=== PATIENT | female | born 1995 | race Caucasian/White ===

== ENCOUNTER 2016-12-11 23:40 | Emergency (ER) | payer OTHER ==
[~2016-12-11] VITALS: Ht 162.6 cm; Wt 54.4 kg
[2016-12-12 00:27] VITALS: BP 113/74
--- NOTE | 2016-12-12 00:58 | PHYS DOC ---
Past Medical History Past Medical History: Other Additional Past Medical Histor: HEART DYSRHYTHMIA Past Surgical History: No Surgical History Alcohol Use: Occasionally Drug Use: Other Social History Narrative: "I TAKE ADDERALL SOMETIMES" Adult General Chief Complaint Chief Complaint: CHEST PAIN HPI HPI Patient is a 21 year old female with a history significant for palpitations in the past. Patient reports that she was diagnosed with palpitations when she was 14 years old. Patient presents here today secondary to feeling her heart was racing and some chest discomfort. Patient reports that she uses Adderall earlier today as well. Patient does smoke tobacco. Patient denies any history of hypertension diabetes liver lung or kidney problems. Patient had no abdominal surgeries in the past. Patient is allergic to Augmentin. Patient has any fevers shakes chills nausea vomiting or diarrhea. Patient reports she is tolerating by mouth's well. Patient reports she's got discomfort in her midepigastric area. Reports her last menstrual period was one week ago. Patient presents here today because she is concerned because her symptoms of her palpitations and they're difficult she's had the past. Patient reports that she' s had a Holter monitor in the past. Patient's physical exam the ER was unremarkable. She is alert awake oriented 3. Patient's heart rate currently is 70-80. Patient's lungs were clear with no wheezing rales or rhonchi. Patient is not reveals. Patient's thyroid is not palpable. Patient's ER workup was significant for normal EKG. Her EKG was normal sinus rhythm at a heart rate of [address]-T wave abnormalities. Patient refused the chest x-ray. I had a long conversation with the patient regarding the likelihood that her symptoms are from the Adderall use that she is taking. Patient does not seem to be satisfied without answer. Patient thinks that her palpitations are from something else. Given her normal vital signs, normal EKG, normal exam at present , I do not feel that the patient at this time would warrant any further inpatient or emergency evaluation. I discussed with the patient that the most likely cause of her symptoms is the Adderall however I could not tell for certain that there isn't something else might be causing her to have palpitations. I recommended strongly for the patient to stop using Adderall completely and to follow-up with her primary care physician for a referral to see her underwater welder so that they can do another Holter monitor on her and assess her palpitations in her symptoms more thoroughly. Patient is currently clinically and hemodynamically stable. Although patient does not appear to be completely satisfied with my examination I unfortunately do not think there is anything further that I can do to assist her. I did spend close to 15-20 minutes after my full evaluation, discussing my recommendations with her. Review of Systems Review of Systems Constitutional: Denies fever or chills [] Eyes: Denies change in visual acuity, redness, or eye pain [] HENT: Denies nasal congestion or sore throat [] All other review systems are negative except as documented in history of present illness portion. Allergies Allergies Allergies Coded Allergies Type Severity Reaction Last Updated Verified amoxicillin Allergy Intermediate Hives 12/12/16 Yes clavulanic acid Allergy Intermediate Hives 12/12/16 Yes sulfamethoxazole Allergy Intermediate HIVES 12/12/16 Yes trimethoprim Allergy Intermediate HIVES 12/12/16 Yes Physical Exam Physical Exam Constitutional: Well developed, well nourished, no acute distress, non-toxic appearance. [] HENT: Normocephalic, atraumatic Eyes: EOMI, conjunctiva normal, no discharge. [] Neck: Normal range of motion, no tenderness, supple, no stridor. [] Cardiovascular:Heart rate regular rhythm, no murmur [] Lungs & Thorax: Bilateral breath sounds clear to auscultation [] Abdomen: Bowel sounds normal, soft, no tenderness, no masses, no pulsatile masses. [] Skin: Warm, dry, no erythema, no rash. [] Back: No tenderness, no CVA tenderness. [] Extremities: No tenderness, no cyanosis, Neurologic: Alert and oriented X 3, normal motor function, normal sensory function, no focal deficits noted. [] Psychologic: Affect normal, judgement normal, mood normal. [] Current Patient Data Vital Signs Vital Signs Date Time Temp Pulse Resp B/P (MAP) Pulse Ox O2 Delivery O2 Flow Rate FiO2 12/12/16 00:27 82 16 113/74 (87) 99 Room Air 12/12/16 00:10 98.9 98.9 Lab Values Laboratory Tests Test 12/11/16 23:26 POC Urine HCG, Qualitative Hcg negative (Negative) EKG EKG [] Radiology/Procedures Radiology/Procedures [] Course & Med Decision Making Course & Med Decision Making Pertinent Labs and Imaging studies reviewed. (See chart for details) [] Dragon Disclaimer Dragon Disclaimer This electronic medical record was generated, in whole or in part, using a voice recognition dictation system. Departure Departure Impression: Primary Impression: Palpitations Additional Impressions: Amphetamine adverse reaction Nonspecific chest pain Disposition: HOME, SELF-CARE Condition: IMPROVED Patient Instructions: Amphetamine Abuse-Brief, Amphetamine; Dextroamphetamine extended-release capsules, Palpitations Additional Instructions: 1. Please stop using Adderall. This is likely causing and contributing to your sensation of palpitations and chest discomfort. 2. Please follow up with her primary care physician for further evaluation and to see if they have any further input regarding her symptoms. 3. Go home and rest and drink lots of liquids. 4. Please return to the ER if you have any new or concerning problems or anything else that we can assist you with. Problem Qualifiers Additional Impressions: Amphetamine adverse reaction Encounter type: initial encounter Qualified Codes: T43.625A - Adverse effect of amphetamines, initial encounter ALLIE RODRIGUEZ MD December 12, 2016 00:58
--- NOTE | 2016-12-12 06:24 | EKG ---
[facility] [address] [place] [address] Test Date: 2016-12-11 Test Time: 23:55:32 Pat Name: CANDICE PELAEZ Department: Room: Gender: F Network Development Coordinator: : 1995 Requested By: ALLIE RODRIGUEZ Order Number: [id number] Reading MD: Tuan Huang Measurements Intervals [place] Rate: 74 P: 63 IA: 156 QRS: 84 QRSD: 74 T: 41 QT: 358 QTc: 398 Interpretive Statements SINUS RHYTHM Electronically Signed On 12-12-2016 9:12:20 CDT by Tuan Huang
== END 2016-12-12 01:15 | disposition home or self-care (01) ==
LOC: ER 23:40
DX: T43.625A Adverse effect of amphetamines, initial encounter (principal); R00.2 Palpitations; R07.89 Other chest pain; R10.13 Epigastric pain; Z88.1 Allergy status to other antibiotic agents; Z88.2 Allergy status to sulfonamides; Y92.89 Other specified places as the place of occurrence of the external cause
CPT/HCPCS: 81025; 84703; 93005; 99283-25

== ENCOUNTER → 2017-05-27 | Outpatient (CLI) | payer BC, OTHER ==
--- NOTE | 2017-05-27 11:59 | RAD ---
Pelvic ultrasound, 05/27/2017: History: Pelvic pain Transabdominal and transvaginal scans were obtained. The uterus is within normal limits in size. The central uterine echocomplex is mildly heterogeneous. It measures 10 mm in AP dimension. The right ovary is of normal size. It contains tiny follicular cysts. There is blood flow in the right ovary. Left ovary contains a 3.3 cm predominantly cystic structure. It contains heterogeneous debris. There is some internal mural irregularity. This is probably a hemorrhagic cyst. There is blood flow in the left ovary. A small amount of free fluid is present in the pelvis. IMPRESSION: 1. Complex cyst in the left ovary which is likely a hemorrhagic functional cyst. Ultrasound follow-up is suggested to exclude a neoplastic etiology. 2. Small amount of free fluid in the pelvis.
== END | disposition home or self-care (01) ==
LOC: US 06:53
PROVIDERS: ATTEND Obstetrics & Gynecology
DX: N83.202 Unspecified ovarian cyst, left side (principal)
CPT/HCPCS: 76830; 76856

== ENCOUNTER → 2017-06-27 | Outpatient (CLI) | payer BC ==
--- NOTE | 2017-06-27 16:05 | KCIC ---
PELVIS W/TV Clinical Indication: Follow-up of left ovarian cyst. Comparison: Pelvic ultrasound, May 27, 2017, [facility]. TECHNIQUE: Real-time ultrasound imaging of the pelvis using transabdominal and transvaginal window is performed. Findings: The left ovary measures 4.1 x 2.8 x 4.3 cm. There are multiple small follicles. There is a dominant complex cyst of the left ovary today measuring 2.6 x 2.4 x 3.4 cm, previously 2.2 x 2.6 x 3.3 cm. Normal blood flow in the left ovary. The right ovary is normal. Small follicles are seen. Uterus measures 5.8 x 3.1 x 3.6 cm. No focal abnormality. The endometrial stripe is normal measuring 3 mm. No pelvic free fluid is identified. IMPRESSION: 1. Probabe hemorrhagic cyst of the left ovary is unchanged. A dermoid would also be in the differential. Recommend additional ultrasound follow-up in 4-8 weeks. 2. No pelvic free fluid is seen. Electronically signed by: Ugo Christian MD (06/27/2017 4:02 PM) [id number]
== END | disposition home or self-care (01) ==
LOC: KCIC US 12:26
PROVIDERS: ATTEND Obstetrics & Gynecology
DX: N83.202 Unspecified ovarian cyst, left side (principal)
CPT/HCPCS: 76830; 76856